=== PATIENT | female | born 1940 | race Caucasian/White ===

== ENCOUNTER → 2017-05-14 | Outpatient (CLI) | payer OTHER, MEDICARE | LOC: M SMT 08:48 | DX: J68.4 Chronic respiratory conditions due to chemicals, gases, fumes and vapors (principal) | CPT/HCPCS: 71046 ==

== ENCOUNTER → 2018-05-12 | Outpatient (CLI) | payer OTHER, MEDICARE ==
--- NOTE | 2018-05-12 14:28 | REP ---
Clinical: Chronic respiratory disease . Comparison: 05/06/2017 . Technique: PA and lateral. Findings: The mediastinum and cardiac silhouette are normal. The lung garcia are clear and without acute consolidation, effusion, or pneumothorax. The skeletal structures are intact and normal. Impression: 1. No acute cardiopulmonary process. Electronically Signed by Lorne Mcpherson MD 05/12/2018 02:20 P
== END ==
LOC: M SMT 11:04
PROVIDERS: ATTEND Internal Medicine Pulmonary Disease
DX: J68.4 Chronic respiratory conditions due to chemicals, gases, fumes and vapors (principal)